=== PATIENT | female | born 1970 | race Caucasian/White ===

== ENCOUNTER 2025-04-30 19:38 | Emergency (ER) | payer MEDICAID ==
[~2025-04-30] VITALS: Ht 165.1 cm; Wt 59.0 kg
[2025-04-30 19:45] VITALS: O2SAT 98
[2025-04-30 20:35] LABS: BASOPHILS % 0.5 % (0.0-2.0); EOSINOPHILS % 0.8 % (0.0-5.0); HEMATOCRIT. 39.3 % (36.0-48.0); HEMOGLOBIN. 12.9 g/dL (12.0-16.0); LYMPHOCYTES % 20.8 % (20.0-50.0); MEAN PLATELET VOLUME 9.9 fl (7.4-10.4); MONOCYTES % 6.2 % (2.0-8.0); NEUTROPHILS % 71.7 % (40.0-76.0); PLATELET 211 x1000/uL (130-400); RED BLOOD CELL COUNT 4.84 mill/uL (4.2-5.4); RED CELL DISTRIBUTION WIDTH 15.7 % (11.6-14.6)
[2025-04-30 20:50] LABS: CREATININE 0.8 mg/dL (0.6-1.0); ETHANOL BLOOD < 10 mg/dL (<10); UREA NITROGEN BLOOD 12 mg/dL (9-23)
[2025-04-30 21:19] LABS: *AMPHETAMINES SCREEN URINE NEGATIVE (NEGATIVE); *BARBITURATES SCREEN URINE NEGATIVE (NEGATIVE); *BENZODIAZEPINES SCREEN URINE NEGATIVE (NEGATIVE); *COCAINE SCREEN URINE NEGATIVE (NEGATIVE); CANNABINOID URINE SCREEN NEGATIVE (NEGATIVE); ECSTASY MDMA SCREEN URINE NEGATIVE (NEGATIVE); METHADONE URINE SCREEN NEGATIVE (NEGATIVE); OPIATES URINE SCREEN NEGATIVE (NEGATIVE); PHENCYCLIDINE URINE SCREEN NEGATIVE (NEGATIVE)
[2025-04-30 23:32] LABS: PROTEIN TOTAL 7.9 g/dL (6.0-8.3)
[2025-04-30 23:34] LABS: ASPARTATE AMINOTRANSFERASE 17 IU/L (<34); BILIRUBIN DIRECT 0.3 mg/dL (<=3.0); BILIRUBIN TOTAL 1.0 mg/dL (0.1-1.0)
[2025-05-01 08:39] LABS: HCG SCREEN NEGATIVE
[2025-05-01] MEDS ORDERED: HYDROXYZINE 25MG TABLET PO PRN (12:15)
[2025-05-02 02:15] LABS: CLARITY URINE CLEAR (CLEAR); COLOR URINE YELLOW (YELLOW); GLUCOSE URINE NEGATIVE (NEGATIVE); KETONES URINE TRACE (NEGATIVE); LEUKOCYTE ESTERASE URINE 2+ (NEGATIVE); NITRITE URINE NEGATIVE (NEGATIVE); OCCULT BLOOD URINE NEGATIVE (NEGATIVE); PH URINE 6.5 (4.5-8.0); PROTEIN URINE NEGATIVE (NEGATIVE); SPECIFIC GRAVITY URINE 1.016 (1.005-1.030); UROBILINOGEN URINE 0.2 E.U./dL (0.2-1.0)
[2025-05-02 02:40] LABS: RBC URINE NONE SEEN /hpf (0-2); SQUAMOUS EPITHELIAL CELL URINE FEW /lpf (RARE/1+)
[2025-05-02 02:41] LABS: BACTERIA URINE TRACE
[2025-05-02 06:18] VITALS: BP 126/86; PULSE 86; RESP 16; TEMP 36.7; O2SAT 99
== END 2025-05-02 06:31 ==
LOC: ER 19:38
DX: R45.851 Suicidal ideations (principal); I10 Essential (primary) hypertension; F41.9 Anxiety disorder, unspecified; Z79.899 Other long term (current) drug therapy; Z20.822 Contact with and (suspected) exposure to COVID-19
CPT/HCPCS: 36415; 80048; 80076; 80305; 80307; 80320; 80329; 81003; 84703; 85025; 87426; 93005; 99285; G0480